=== PATIENT | male | born 1955 | race Caucasian/White ===

== ENCOUNTER 2023-01-24 08:28 | Emergency (ER) | payer MEDICARE, BC ==
[2023-01-24] MEDS ORDERED: Amoxicillin/Clavulanate K 875-125 MG Tab ONE (08:45)
== END 2023-01-24 09:00 | disposition home or self-care (01) ==
LOC: LB.ED 08:28
DX: H66.001 Acute suppurative otitis media without spontaneous rupture of ear drum, right ear (principal); Z91.018 Allergy to other foods
CPT/HCPCS: 99282; A9270-GY